=== PATIENT | female | born 1950 | race African-American/Black ===

== ENCOUNTER 2016-10-17 14:08 | Inpatient (IN) | payer OTHER ==
[~2016-10-17] VITALS: Ht 167.6 cm; Wt 75.5 kg
--- NOTE | ~2016-10-17 | EKG ---
[address] [address] ELECTROCARDIOGRAM REPORT Name: ELISA ROGERS Room #: 240-P ADM IN M.R.#: [id number] Admission: 10/17/16 Attend Phys: Damion Brooks DO Discharge: Date of : 54 Report #: [id number] THIS REPORT FOR: //name// [facility] ED Test Date: 2016-10-17 Test Time: 14:20:04 Pat Name: ELISA ROGERS Department: Room: 240 Gender: F Spear Fisher: ANASTASIA : 1950 Requested By: Toney Samaniego Order Number: [id number] MD: Jem Rosales Measurements Intervals [place] Rate: 101 P: 60 DE: 159 QRS: -7 QRSD: 96 T: 79 QT: 346 QTc: 449 Interpretive Statements Sinus tachycardia LVH with secondary repolarization abnormality No previous ECG available for comparison Electronically Signed On 10-18-2016 12:34:23 CDT by Jem Rosales [email or web address] <ELECTRONICALLY SIGNED> By: Jem Rosales MD, [facility] 10/18/16 1234 1420 1420 Jem Rosales MD, FACC /EPI
--- NOTE | ~2016-10-17 | 2DMMODE ---
[facility] [email or web address] [address] 2 D/M-MODE ECHOCARDIOGRAM Name: ELISA ROGERS Sd Room #: 240-P [facility] IN ..#: [id number] Admission: 10/17/16 Attend Phys: Damion Brooks, Discharge: Date of : 54 Date of Service: 10/19/16 1022 Report #: [id number] THIS REPORT FOR: //name// APPROVED REPORT EXAM: Comprehensive 2D, Doppler, and color-flow Echocardiogram Patient Location: Bedside Blood Pressure: 139/82 mmHg HR: 78 bpm Other Information Study Quality: Good Indications COPD Diabetes Pulmonary Hypertension 2D Dimensions RVDd: 34.95 mm LVEF(%): 30.15 (>50%) IVSd: 7.66 (7-11mm) LVOT Diam: 20.27 (18-24mm) LVDd: 55.57 mm PWd: 7.74 (7-11mm) Ascending Aorta: 28.33 mm LVDs: 47.60 (25-40mm) IVC: 19.00 mm Aortic Root: 29.00 mm Rae's LVEF: 30.15 % Volumes Left Atrial Volume (Systole) Single Plane 4CH: 50.37 mL Single Plane 2CH: 66.86 mL LA ESV Index: 36.00 mL/m2 Aortic Valve AoV Peak Gulshan.: 1.26 m/s AO Peak Gr.: 6.30 mmHg LV Max P.27 mmHg LV Max: 1.03 m/s Mitral Valve MV PHT: 63.61 ms MV E Max Gulshan.: 0.95 m/s E/A Ratio: 1.0 MV A Gulshan.: 0.91 m/s MV Decel. Time: 219.35 ms [facility] [address] [place] [address] 2 D/M-MODE ECHOCARDIOGRAM Name: ELISA ROGERS Room #: [address] [place] [address] [place] [facility].#: [id number] Admission: 10/17/16 Attend Phys: Damion Brooks, Discharge: Date of : 54 Date of Service: 10/19/16 1022 Report #: [id number] Pulmonary Valve PV Peak Gulshan.: 0.79 m/s PV Peak Gr.: 2.50 mmHg Tricuspid Valve TR Peak Gulshan.: 3.36 m/s RAP Estimate: 10.00 mmHg TR Peak Gr.: 45.27 mmHg Left Ventricle The left ventricle is upper normal size. There is global hypokinesis of the left ventricle with more prominent basilar and mid septal hypokinesis There is normal left ventricular wall thickness. Left ventricular systolic function is moderately decreased. Left ventricular systolic function is moderately decreased. LVEF is 35-40%. The left ventricular diastolic function is normal. Right Ventricle The right ventricle is normal size. The right ventricular systolic function is normal. Atria Left atrium is dilated. The right atrium size is normal. Aortic Valve Aortic valve is trileaflet. Mitral Valve The mitral valve is normal in structure. Mild to moderate mitral regurgitation. Tricuspid Valve The tricuspid valve is normal in structure. There is mild tricuspid regurgitation. The right atrial pressure is estimated at 10 mmHg. There is moderate pulmonary hypertension. Pulmonic Valve The pulmonary valve is normal in structure. Trace pulmonic regurgitation. Great Vessels The aortic root is normal in size. IVC is normal in size and collapses <50% with inspiration. Pericardium There is no pericardial effusion. <Conclusion> [facility] [address] [place] [address] 2 D/M-MODE ECHOCARDIOGRAM Name: ELISA ROGERS Room #: 240-P [facility] IN M.R.#: [id number] Admission: 10/17/16 Attend Phys: Damion Brooks, Discharge: Date of : 54 Date of Service: 10/19/16 1022 Report #: [id number] The left ventricle is upper normal size. LVEF is 35-40%. There is global hypokinesis of the left ventricle with more prominent basilar and mid septal hypokinesis Left atrium is dilated. Mild to moderate mitral regurgitation. There is mild tricuspid regurgitation. The right atrial pressure is estimated at 10 mmHg. There is moderate pulmonary hypertension. Trace pulmonic regurgitation. <ELECTRONICALLY SIGNED> By: Jack Herbert MD 10/19/16 1022 102 102 Jack Herbert MD /INF
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
--- NOTE | ~2016-10-17 | EKG ---
[address] [address] ELECTROCARDIOGRAM REPORT Name: ELISA ROGERS Room #: 461-P ADM IN M.R.#: [id number] Admission: 10/17/16 Attend Phys: Damion Brooks DO Discharge: Date of : 54 Report #: [id number] THIS REPORT FOR: //name// [facility] Test Date: 2016-10-21 Test Time: 14:25:01 Pat Name: ELISA ROGERS Department: Room: 461 Gender: F Bods Developer: Preet JO : 1950 Requested By: Mario Mcmanus Order Number: [id number] MD: Jem Rosales Measurements Intervals [place] Rate: 91 P: 60 LA: 149 QRS: 1 QRSD: 94 T: 38 QT: 374 QTc: 461 Interpretive Statements Sinus rhythm Left ventricular hypertrophy Borderline T abnormalities, anterior leads Compared to ECG 10/18/2016 19:37:18 T-wave abnormality now present Electronically Signed On 10-21-2016 19:11:04 CDT by Jem Rosales [email or web address] <ELECTRONICALLY SIGNED> By: Jem Rosales MD, [facility] 10/21/16 1911 1425 1425 Jem Rosales MD, [facility] /EPI
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
--- NOTE | ~2016-10-17 | EKG ---
[address] [address] ELECTROCARDIOGRAM REPORT Name: ELISA ROGERS Room #: 240-P ADM IN M.R.#: [id number] Admission: 10/17/16 Attend Phys: Damion Brooks DO Discharge: Date of : 54 Report #: [id number] THIS REPORT FOR: //name// [facility] ED Test Date: 2016-10-18 Test Time: 19:37:18 Pat Name: ELISA ROGERS Department: Room: 240 P Gender: F Artist And Repertoire Manager: jim : 1950 Requested By: Kwasi Mcneil Order Number: [id number] MD: Jem Rosales Measurements Intervals [place] Rate: 114 P: 70 MT: 160 QRS: -8 QRSD: 96 T: 88 QT: 338 QTc: 466 Interpretive Statements Sinus tachycardia Occasional atrial premature complexes LVH with secondary repolarization abnormality Compared to ECG 10/17/2016 14:20:04 Atrial premature complexes are now present Electronically Signed On 10-19-2016 9:45:01 CDT by Jem Rosales [email or web address] <ELECTRONICALLY SIGNED> By: Jem Rosales MD, [facility] 10/19/16 0945 36 36 Jem Rosales MD, [facility] /EPI
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
[~2016-10-17 14:08] MED LIST: ACIDOPHILUS1 EAC3 PO; AMBIEN 5 MG TABL5 M1 PO; AMOXICILLIN 50500 M1 PO; ARANESP 6060 MCG/0.3 IJ; ASPIRIN EC81 M1 PO; AUGMENTIN 875875 MG PO; BACTRIM DS TAB1 EACH PO; BENADRYL25 MG PO; CARVEDILOL6.25 MG PO; CEFTIN500 MG PO; CEPACOL SORE T1 EAC2 MUCOUS MEM; CLORPACTIN WCS-92 GM IRRIG; COLACE 100 MG100 MG PO; COMPAZINE10 MG PO; DESYREL50 MG PO; DETROL LA4 MG PO; DOLOPHINE HCL10 MG PO; DULCOLAX5 MG PO; DURAGESIC1 EAC2 TRANSDERM; FLUCONAZOLE 10100 MG PO; HYDROCODON-ACE1 EAC8 PO; K-DUR10 MEQ PO; KEFLEX500 MG PO; LEXAPRO 10 MG T10 M2 PO; LIDODERM 5%1 PATCH TOP; NEURONTIN600 MG PO; NORCO 10-325 T1 EACH PO; NORCO 5-325 TA1 EACH PO; NYSTATIN 1100000 U/M SW&SWALLOW; OMEPRAZOLE 20 M20 M1 PO; OMEPRAZOLE 20 M20 MG PO; ONGLYZA2.5 MG PO; PEPCID40 MG PO; PERCOCET 5-3251 EACH PO; PHENERGAN 25 MG25 M1 PO; POLYETHYLENE GL17 GM PO; PRILOSEC40 MG PO; PROBIOTIC1 EAC1 PO; PRORENAL VITAL1 EACH PO; RENVELA800 MG PO; SENOKOT-S1 TA1 PO; SIMVASTATIN10 MG PO; TRAZODONE HCL100 MG PO; VITAMIN D-32000 UNIT PO; VITAMIN D35000 UNI1 PO; VITAMINC500 PO; WELLBUTRIN SR150 MG PO; ZOFRAN ODT4 MG PO; ZYVOX600 MG PO; [UNRECOGNIZED DRUG - OTHER] TP
[2016-10-17] MEDS ORDERED: LOPRESSOR 12.12.5 MG PO (14:47)
[2016-10-17] MEDS ORDERED: ROBITUSSIN100 MG/53 PO (14:50)
[2016-10-17] MEDS ORDERED: SEROQUEL 25 MG25 M1 PO (14:51)
[2016-10-17] MEDS ORDERED: HYDROXYZINE IM (14:56)
[2016-10-17] MEDS ORDERED: ZYPREXA10 MG/VIAL IM (14:57)
[2016-10-17] MEDS ORDERED: VAN500AD IVPB (14:58)
[2016-10-17 14:59] LABS: RBC 2.94 mil/uL (4.20-5.00); WBC 32.3 thou/uL (4.0-11.0)
[2016-10-17] MEDS ORDERED: LORAZEPAM 22 MG/1 ML IV (14:59)
[2016-10-17 15:00] LABS: HEMATOCRIT 23.4 % (37.0-47.0); HEMOGLOBIN 7.4 gm/dL (12.0-15.0); MCH 25.1 pg (26.0-34.0); MCHC 31.5 g/dL (28.0-37.0); MCV 79.8 fL (80.0-100.0); RDW 20.7 % (10.5-14.5)
[2016-10-17] MEDS ORDERED: DOLOPHINE HCL5 MG PO (15:01)
[2016-10-17 15:02] LABS: ANION GAP 5 mmol/L (7-16); BUN 34 mg/dL (7-18); CALCIUM 8.2 mg/dL (8.5-10.1); CHLORIDE 99 mmol/L (98-107); CO2 31 mmol/L (21-32); CREATININE 2.1 mg/dL (0.6-1.3); GLUCOSE 150 mg/dL (70-99); POTASSIUM 3.9 mmol/L (3.5-5.1); SODIUM 135 mmol/L (136-145)
[2016-10-17] MEDS ORDERED: FEVERALL650 MG RECTAL (15:02)
[2016-10-17] MEDS ORDERED: PIPERACIL-TAZ2.25 G1 IVPB (15:02)
[2016-10-17] MEDS ORDERED: MUCINEX TA600 MG/TA2 PO (15:03)
[2016-10-17] MEDS ORDERED: SINGULAIR 10 MG10 M1 PO (15:03)
[2016-10-17 15:04] LABS: MANUAL DIFF YES
[2016-10-17] MEDS ORDERED: ADVAIR 250-501 EACH INH (15:04)
[2016-10-17] MEDS ORDERED: PULMICORT0.5 MG/22 INH (15:05)
[2016-10-17] MEDS ORDERED: DUONEB 2.5-0.5 M3 ML INH ×2 (15:05)
[2016-10-17] MEDS ORDERED: ARANESP25 MCG/0.4 IJ (15:06)
[2016-10-17] MEDS ORDERED: COLACE100 MG PO (15:06)
[2016-10-17] MEDS ORDERED: ONDANSETRON HCL4 M2 PO (15:07)
[2016-10-17] MEDS ORDERED: BISACODYL SUPP10 MG RECTAL (15:07)
[2016-10-17] MEDS ORDERED: HYDROCODONE-AP1 EAC6 PO (15:08)
[2016-10-17] MEDS ORDERED: SENNA8.6 MG PO (15:09)
[2016-10-17] MEDS ORDERED: LIPITOR10 MG PO (15:09)
[2016-10-17] MEDS ORDERED: PANTOPRAZOLE SO40 M1 PO (15:10)
[2016-10-17 15:11] LABS: APTT 36.9 Seconds (24.5-32.8); INR 1.3; PROTIME 13.6 Seconds (9.3-11.4)
[2016-10-17] MEDS ORDERED: TESSALON PERLE100 MG PO (15:11)
[2016-10-17 15:19] LABS: ALBUMIN 1.4 g/dL (3.4-5.0); ALKALINE PHOSPHATASE 226 U/L (46-116); MAGNESIUM 1.8 mg/dL (1.8-2.4); NT-PRO BRAIN NAT PEPTIDE 13344 pg/mL (<300); SGOT 38 U/L (15-37); SGPT 29 U/L (30-65); TOTAL BILIRUBIN 1.3 mg/dL (<0.1-1.0); TROPONIN-I 0.04 ng/mL (<0.04-0.07)
[2016-10-17] MEDS ORDERED: TPN ELECTROLYTE20 M1 IV (15:24)
[2016-10-17] MEDS ORDERED: POVIDINE 10% OI28 G1 TP (15:26)
[2016-10-17] MEDS ORDERED: DAKIN'S473 M1 MC (15:26)
[2016-10-17] MEDS ORDERED: [UNRECOGNIZED DRUG - SUPPLY] TP (15:26)
[2016-10-17] MEDS ORDERED: [UNRECOGNIZED DRUG - SUPPLY] TP (15:27)
[2016-10-17 15:33] LABS: ABSOLUTE NEUTROPHILS 28.1 thou/uL (1.4-8.2); TOTAL CELL COUNT 100
[2016-10-17 15:34] LABS: PLATELET COUNT 55 thou/uL (150-400)
[2016-10-17 15:39] LABS: CK-MB MASS < 0.5 ng/mL (<0.5-3.6)
[2016-10-17 17:39] LABS: ABG SAMPLE TYPE VENOUS; HCO3 30.7 mmol/L (22.0-26.0); LACTATE 1.35 mmol/L (0.5-2.0); O2(CT) 8.3 mL/dL (15.0-23.0); O2Hb VENOUS 71.6 (65.0-85.0); PCO2 VENOUS 52.3 mmHg (41.0-51.0); PO2 VENOUS 36.3 mmHg (35.0-45.0); sO2 VENOUS 67.6 % (65.0-85.0); tCO2 32.3 mmol/L (24.0-30.0)
[2016-10-17 18:12] LABS: AMYLASE 15 U/L (25-115); CALCIUM 8.4 mg/dL (8.5-10.1); CREATININE 2.2 mg/dL (0.6-1.3)
[2016-10-17 19:23] LABS: ABG SAMPLE TYPE VENOUS; BE(vivo) 4.4 mmol/L (-2 to +3); HCO3 29.7 mmol/L (22.0-26.0); LACTATE 1.82 mmol/L (0.5-2.0); O2Hb VENOUS 55.6 (65.0-85.0); PCO2 VENOUS 48.5 mmHg (41.0-51.0); PO2 VENOUS 27.4 mmHg (35.0-45.0); sO2 VENOUS 50.7 % (65.0-85.0); tCO2 31.2 mmol/L (24.0-30.0)
[2016-10-17 19:24] LABS: ABG COMMENT VBG #2; STICK SITE LINE
[2016-10-17 20:31] LABS: ABG SAMPLE TYPE VENOUS; BE(vivo) 2.4 mmol/L (-2 to +3); HCO3 28.3 mmol/L (22.0-26.0); LACTATE 1.25 mmol/L (0.5-2.0); O2(CT) 10.2 mL/dL (15.0-23.0); O2Hb VENOUS 80.2 (65.0-85.0); PCO2 VENOUS 50.9 mmHg (41.0-51.0); PO2 VENOUS 45.7 mmHg (35.0-45.0); sO2 VENOUS 79.5 % (65.0-85.0); tCO2 29.9 mmol/L (24.0-30.0)
[2016-10-17 20:32] LABS: ABG COMMENT VBG #3; STICK SITE LINE
[2016-10-17 21:25] LABS: ABG SAMPLE TYPE VENOUS; BE(vivo) 3.6 mmol/L (-2 to +3); HCO3 29.9 mmol/L (22.0-26.0); LACTATE 1.31 mmol/L (0.5-2.0); O2(CT) 9.5 mL/dL (15.0-23.0); O2Hb VENOUS 74.7 (65.0-85.0); PCO2 VENOUS 55.1 mmHg (41.0-51.0); PO2 VENOUS 40.9 mmHg (35.0-45.0); STICK SITE LINE; sO2 VENOUS 72.7 % (65.0-85.0); tCO2 31.6 mmol/L (24.0-30.0)
[2016-10-17 21:39] LABS: CALCIUM 8.5 mg/dL (8.5-10.1); CREATININE 2.2 mg/dL (0.6-1.3); POTASSIUM 3.9 mmol/L (3.5-5.1)
[2016-10-17 21:52] LABS: INR 1.4; PROTIME 14.2 Seconds (9.3-11.4)
[2016-10-17 22:28] LABS: ABG SAMPLE TYPE VENOUS; BE(vivo) 2.4 mmol/L (-2 to +3); HCO3 28.4 mmol/L (22.0-26.0); LACTATE 1.29 mmol/L (0.5-2.0); O2(CT) 6.9 mL/dL (15.0-23.0); O2Hb VENOUS 59.7 (65.0-85.0); PCO2 VENOUS 51.7 mmHg (41.0-51.0); PO2 VENOUS 30.3 mmHg (35.0-45.0); STICK SITE LINE; sO2 VENOUS 54.2 % (65.0-85.0); tCO2 29.9 mmol/L (24.0-30.0)
[2016-10-17 23:36] LABS: HCO3 29.9 mmol/L (22.0-26.0); LACTATE 1.22 mmol/L (0.5-2.0); O2Hb VENOUS 82.4 (65.0-85.0); PCO2 VENOUS 52.9 mmHg (41.0-51.0); PO2 VENOUS 47.4 mmHg (35.0-45.0); sO2 VENOUS 81.4 % (65.0-85.0); tCO2 31.5 mmol/L (24.0-30.0)
[2016-10-17 23:38] LABS: ABG SAMPLE TYPE VENOUS; STICK SITE LINE
[2016-10-18 01:49] LABS: HEMATOCRIT 22.2 % (37.0-47.0); HEMOGLOBIN 7.1 gm/dL (12.0-15.0); MCH 25.1 pg (26.0-34.0); MCHC 31.9 g/dL (28.0-37.0); MCV 78.6 fL (80.0-100.0); PLATELET COUNT 58 thou/uL (150-400); RBC 2.82 mil/uL (4.20-5.00); RDW 20.4 % (10.5-14.5); WBC 33.3 thou/uL (4.0-11.0)
[2016-10-18 01:51] LABS: MANUAL DIFF YES
[2016-10-18 01:58] LABS: ALBUMIN 1.3 g/dL (3.4-5.0); CALCIUM 8.3 mg/dL (8.5-10.1); CREATININE 2.2 mg/dL (0.6-1.3); PHOSPHORUS 2.8 mg/dL (2.5-4.9); POTASSIUM 3.9 mmol/L (3.5-5.1)
[2016-10-18 03:09] LABS: INR 1.4; PROTIME 14.1 Seconds (9.3-11.4)
[2016-10-18 04:06] LABS: ABSOLUTE NEUTROPHILS 28.3 thou/uL (1.4-8.2); ANISOCYTOSIS 2+; MACROCYTES 1+; MICROCYTES 1+; TOTAL CELL COUNT 100
[2016-10-18 04:07] LABS: LARGE PLATELETS OCCASIONAL; PLATELET ESTIMATE DECREASED
[2016-10-18 05:31] LABS: ABG SAMPLE TYPE ARTERIAL; BE(vivo) 3.6 mmol/L (-2 to +3); HCO3 28.8 mmol/L (22.0-26.0); LACTATE 1.03 mmol/L (0.5-2.0); O2(CT) 11.6 mL/dL (15.0-23.0); O2Hb 97.1 % (92.0-98.0); PO2 118.7 mmHg (80.0-100.0); STICK SITE LRA; pH 7.405 (7.360-7.450); sO2 98.3 % (92.0-98.0); tCO2 30.2 mmol/L (24.0-30.0)
[2016-10-18 05:37] LABS: URINE COLOR YELLOW
[2016-10-18 05:38] LABS: URINE BILIRUBIN NEGATIVE (Negative); URINE BLOOD 3+ (Negative); URINE GLUCOSE-RANDOM* NEGATIVE (Negative); URINE KETONES NEGATIVE (Negative); URINE NITRITE POSITIVE (Negative); URINE SPECIFIC GRAVITY 0.015 (1.003-1.035); URINE UROBILINOGEN 0.2 E.U./dl (0.2-1.0)
[2016-10-18 05:54] LABS: SSA (PROTEIN CONFIRMATORY) 2+ (APPROX. 10-100) mg/dL (Negative)
[2016-10-18 05:55] LABS: CASTS None Seen /LPF (None Seen); SQUAMOUS None Seen /LPF (0-3)
[2016-10-18 05:56] LABS: BACTERIA >30 Many /HPF (None Seen); CRYSTALS None Seen /LPF (None Seen)
[2016-10-18 19:42] LABS: MAGNESIUM 1.8 mg/dL (1.8-2.4); PHOSPHORUS 3.6 mg/dL (2.5-4.9); TROPONIN-I < 0.04 ng/mL (<0.04-0.07)
[2016-10-19 05:01] LABS: HEMOGLOBIN 7.2 gm/dL (12.0-15.0); MCH 25.2 pg (26.0-34.0); MCHC 31.4 g/dL (28.0-37.0); MCV 80.2 fL (80.0-100.0); PLATELET COUNT 122 thou/uL (150-400); RBC 2.86 mil/uL (4.20-5.00); RDW 20.7 % (10.5-14.5)
[2016-10-19 05:06] LABS: ALBUMIN 1.4 g/dL (3.4-5.0); CALCIUM 8.7 mg/dL (8.5-10.1); CREATININE 2.8 mg/dL (0.6-1.3); PHOSPHORUS 4.2 mg/dL (2.5-4.9); POTASSIUM 4.5 mmol/L (3.5-5.1)
[2016-10-19 06:10] LABS: MANUAL DIFF YES
[2016-10-19 06:11] LABS: WBC 40.4 thou/uL (4.0-11.0)
[2016-10-19 07:24] LABS: ABSOLUTE NEUTROPHILS 32.7 thou/uL (1.4-8.2); METAMYELOCYTES 2 %; MYELOCYTES 2 %; NUCLEATED RBCS 1 /100WBC; TOTAL CELL COUNT 100
[2016-10-19 07:25] LABS: ANISOCYTOSIS 2+; HYPOCHROMASIA 2+
[2016-10-19 08:26] LABS: % SATURATION 99 % (20-39); IRON 105 ug/dL (50-170); TIBC 106 ug/dL (250-450); UIBC 1 ug/dL
[2016-10-20 04:33] LABS: HEMATOCRIT 21.8 % (37.0-47.0); MCH 25.4 pg (26.0-34.0); MCHC 31.9 g/dL (28.0-37.0); MCV 79.6 fL (80.0-100.0); RBC 2.74 mil/uL (4.20-5.00); RDW 20.6 % (10.5-14.5)
[2016-10-20 04:44] LABS: ALBUMIN 1.4 g/dL (3.4-5.0); PHOSPHORUS 2.2 mg/dL (2.5-4.9)
[2016-10-20 04:45] LABS: CREATININE 1.8 mg/dL (0.6-1.3); POTASSIUM 3.4 mmol/L (3.5-5.1)
[2016-10-21 06:30] LABS: WBC 30.6 thou/uL (4.0-11.0)
[2016-10-21 06:32] LABS: HEMATOCRIT 21.8 % (37.0-47.0); MCH 25.4 pg (26.0-34.0); MCHC 31.7 g/dL (28.0-37.0); MCV 80.1 fL (80.0-100.0); PLATELET COUNT 190 thou/uL (150-400); RBC 2.72 mil/uL (4.20-5.00)
[2016-10-21 06:37] LABS: MANUAL DIFF YES
[2016-10-21 06:42] LABS: HEMOGLOBIN 6.9 gm/dL (12.0-15.0)
[2016-10-21 06:44] LABS: ALBUMIN 1.4 g/dL (3.4-5.0); CALCIUM 8.3 mg/dL (8.5-10.1); CREATININE 2.4 mg/dL (0.6-1.3); PHOSPHORUS 3.1 mg/dL (2.5-4.9); POTASSIUM 3.4 mmol/L (3.5-5.1)
[2016-10-21 07:17] LABS: ABSOLUTE NEUTROPHILS 29.1 thou/uL (1.4-8.2); TOTAL CELL COUNT 100
[2016-10-21 07:18] LABS: ANISOCYTOSIS 2+; NUCLEATED RBCS 1 /100WBC; POLYCHROMASIA SLIGHT
[2016-10-21 07:20] LABS: HYPOCHROMASIA 2+; MACROCYTES 1+; MICROCYTES 1+
[2016-10-22 05:29] LABS: MCH 25.8 pg (26.0-34.0); MCHC 31.6 g/dL (28.0-37.0); RBC 2.57 mil/uL (4.20-5.00)
[2016-10-22 05:30] LABS: MCV 81.6 fL (80.0-100.0); RDW 21.7 % (10.5-14.5); WBC 29.3 thou/uL (4.0-11.0)
[2016-10-22 05:44] LABS: HEMOGLOBIN 6.6 gm/dL (12.0-15.0)
[2016-10-22 05:52] LABS: ALBUMIN 1.3 g/dL (3.4-5.0); CALCIUM 7.8 mg/dL (8.5-10.1); CREATININE 1.6 mg/dL (0.6-1.3); PHOSPHORUS 2.4 mg/dL (2.5-4.9); POTASSIUM 3.4 mmol/L (3.5-5.1)
[2016-10-23 05:43] LABS: HEMATOCRIT 23.9 % (37.0-47.0); HEMOGLOBIN 7.9 gm/dL (12.0-15.0); MCH 26.8 pg (26.0-34.0); MCHC 33.1 g/dL (28.0-37.0); PLATELET COUNT 218 thou/uL (150-400); RBC 2.95 mil/uL (4.20-5.00); RDW 20.5 % (10.5-14.5); WBC 28.2 thou/uL (4.0-11.0)
[2016-10-23 05:52] LABS: MANUAL DIFF YES
[2016-10-23 06:00] LABS: CALCIUM 8.1 mg/dL (8.5-10.1); CREATININE 2.2 mg/dL (0.6-1.3); POTASSIUM 3.8 mmol/L (3.5-5.1)
[2016-10-23 07:07] LABS: ABSOLUTE NEUTROPHILS 21.7 thou/uL (1.4-8.2); ANISOCYTOSIS 1+; TOTAL CELL COUNT 100
== END 2016-10-23 16:51 | DRG 871 ==
LOC: ER 14:08 → ICU 15:29 → EROBS 15:29 → ICU 16:17 → 4W 10-20 12:28
PROVIDERS: Emergency Medicine; Family Medicine; Internal Medicine Geriatric Medicine; Internal Medicine Nephrology; Internal Medicine Pulmonary Disease
DX: A41.52 Sepsis due to Pseudomonas (principal); J96.01 Acute respiratory failure with hypoxia; G93.40 Encephalopathy, unspecified; N18.6 End stage renal disease; J69.0 Pneumonitis due to inhalation of food and vomit; L89.154 Pressure ulcer of sacral region, stage 4; E43 Unspecified severe protein-calorie malnutrition; G82.20 Paraplegia, unspecified; I42.9 Cardiomyopathy, unspecified; I13.2 Hypertensive heart and chronic kidney disease with heart failure and with stage 5 chronic kidney disease, or end stage renal disease; K21.9 Gastro-esophageal reflux disease without esophagitis; F17.210 Nicotine dependence, cigarettes, uncomplicated; E11.22 Type 2 diabetes mellitus with diabetic chronic kidney disease; N20.0 Calculus of kidney; D69.6 Thrombocytopenia, unspecified; D64.9 Anemia, unspecified; I27.2 Other secondary pulmonary hypertension; I48.0 Paroxysmal atrial fibrillation; R65.20 Severe sepsis without septic shock; L89.320 Pressure ulcer of left buttock, unstageable; I50.9 Heart failure, unspecified; E66.9 Obesity, unspecified; Z99.2 Dependence on renal dialysis; Z90.710 Acquired absence of both cervix and uterus; Z90.49 Acquired absence of other specified parts of digestive tract; Z68.26 Body mass index [BMI] 26.0-26.9, adult; Z89.421 Acquired absence of other right toe(s); Z88.1 Allergy status to other antibiotic agents; Z88.6 Allergy status to analgesic agent; Z88.8 Allergy status to other drugs, medicaments and biological substances; Z82.49 Family history of ischemic heart disease and other diseases of the circulatory system
CPT/HCPCS: 10047; 10078; 32100

== ENCOUNTER → 2016-11-02 | Outpatient (CLI) | payer OTHER ==
[~2016-11-02] MED LIST changes: +ADVAIR 250-501 EACH INH; +ARANESP25 MCG/0.4 IJ; +BISACODYL SUPP10 MG RECTAL; +CELEXA20 MG PO; +COLACE100 MG PO; +DAKIN'S473 M1 MC; +DOLOPHINE HCL5 MG PO; +DUONEB 2.5-0.5 M3 ML INH; +FEVERALL650 MG RECTAL; +HYDROCODONE-AP1 EAC6 PO; +HYDROXYZINE IM; +LIPITOR10 MG PO; +LOPRESSOR 12.12.5 MG PO; +LORAZEPAM 22 MG/1 ML IV; +MUCINEX TA600 MG/TA2 PO; +MULTIVITAMINS1 EAC7 PO; +ONDANSETRON HCL4 M2 PO; +PANTOPRAZOLE SO40 M1 PO; +PIPERACIL-TAZ2.25 G1 IVPB; +POVIDINE 10% OI28 G1 TP; +PULMICORT0.5 MG/22 INH; +ROBITUSSIN100 MG/53 PO; +SENNA8.6 MG PO; +SEROQUEL 25 MG25 M1 PO; +SINGULAIR 10 MG10 M1 PO; +TESSALON PERLE100 MG PO; +TPN ELECTROLYTE20 M1 IV; +VAN500AD IVPB; +ZYPREXA10 MG/VIAL IM; +[UNRECOGNIZED DRUG - SUPPLY] TP; +[UNRECOGNIZED DRUG - SUPPLY] TP
[2016-11-02 12:09] VITALS: BP 120/39
== END | disposition home or self-care (01) ==
LOC: SPEC 11:49
DX: T82.868A Thrombosis due to vascular prosthetic devices, implants and grafts, initial encounter (principal); I12.0 Hypertensive chronic kidney disease with stage 5 chronic kidney disease or end stage renal disease; N18.6 End stage renal disease; I50.9 Heart failure, unspecified; K21.9 Gastro-esophageal reflux disease without esophagitis; D64.9 Anemia, unspecified; E78.5 Hyperlipidemia, unspecified; Y83.9 Surgical procedure, unspecified as the cause of abnormal reaction of the patient, or of later complication, without mention of misadventure at the time of the procedure; Z90.710 Acquired absence of both cervix and uterus; Z90.49 Acquired absence of other specified parts of digestive tract; Z87.891 Personal history of nicotine dependence